=== PATIENT | female | born 1955 | race Two or more races ===

== ENCOUNTER 2018-08-01 13:37 | Emergency (ER) | payer OTHER ==
[~2018-08-01] VITALS: Ht 154.9 cm; Wt 54.4 kg
[2018-08-01 14:12] VITALS: BP 129/79
[2018-08-01] MEDS ORDERED: ACETAMINOPHEN 325 MG TAB PO ONE (15:00)
== END 2018-08-01 15:18 | disposition home or self-care (01) ==
LOC: EDBD 13:37 → ER 13:37
DX: S20.212A Contusion of left front wall of thorax, initial encounter (principal); V43.52XA Car driver injured in collision with other type car in traffic accident, initial encounter; Y93.89 Activity, other specified; Y99.8 Other external cause status; Y92.488 Other paved roadways as the place of occurrence of the external cause
CPT/HCPCS: 71046; 93005